=== PATIENT | male | born 1990 | race Caucasian/White ===

== ENCOUNTER 2019-06-01 09:49 | Emergency (ER) | payer OTHER ==
[2019-06-01] MEDS ORDERED: Adacel (T-DAP) 0.5 ML SYRINGE ONE (10:06)
== END 2019-06-01 10:20 | disposition home or self-care (01) ==
LOC: SCSER 09:49
DX: S61.211A Laceration without foreign body of left index finger without damage to nail, initial encounter (principal); W45.8XXA Other foreign body or object entering through skin, initial encounter
CPT/HCPCS: 12001; 90471; 90715